=== PATIENT | male | born 2005 | race Caucasian/White ===

== ENCOUNTER → 2025-01-03 07:56 | Outpatient (BNVA) | payer BC, SELFPAY | PROVIDERS: Family Provider Nurse Practitioner Family; PCP Family Medicine; Visit Provider Physician Assistant | DX: S62.91XA Unspecified fracture of right hand, initial encounter for closed fracture (principal); S62.306A Unspecified fracture of fifth metacarpal bone, right hand, initial encounter for closed fracture; W22.09XA Striking against other stationary object, initial encounter | CPT/HCPCS: 73130 ==

== ENCOUNTER 2025-01-05 08:57 | Day surgery (SDC) | payer BC, SELFPAY ==
[2025-01-05] VITALS (11 sets, daily range): BP systolic 131–152; BP diastolic 82–107; PULSE 73–101; RESP 10–21; TEMP 36.1–36.9; O2SAT 93–98; BMI 37.4
--- NOTE | 2025-01-05 09:30 | W.PM.OPSUD ---
Surgery/Procedure H&P Update DATE OF PROCEDURE: January 05, 2025 DATE H&P PERFORMED: 01/03/25 H&P UPDATE INFORMATION: I have reviewed H&P completed within last 30 days, I have examined patient prior to procedure and No changes to prior documentation PREOP DIAGNOSIS: Right fifth metacarpal neck fracture PRIMARY INDICATION FOR PROCEDURE: Right fifth metacarpal neck fracture angulated and malrotated PLANNED PROCEDURE: Operation Date: 01/05/25 10:40 Proposed Procedures p ORIF Right Fifth Metacarpal(Right) - Clemente Hernandez DO
[2025-01-05] MEDS: acetaminophen 1,000 MG/100 ML PIGGYBACK 400 MG IV (09:45)
--- NOTE | 2025-01-05 10:13 | P.ANESASSM_ITS ---
Pre-Anesthetic Assessment Height/Weight: Height 6 ft Weight 276 lb Temp Pulse Resp BP Pulse Ox O2 Del Method 97.3 F L 90 17 151/105 97 Room Air 01/05/25 09:32 01/05/25 09:32 01/05/25 09:32 01/05/25 09:32 01/05/25 09:32 01/05/25 09:32 Preop Diagnosis: Right fifth metacarpal neck fracture Operation Date: 01/05/25 10:40 Proposed Procedures p ORIF Right Fifth Metacarpal(Right) - Clemente Hernandez DO Was Beta Lawanda taken within 24 hours: N/A Was Clonidine taken within 24 hours: N/A Last intake: Intake Last Liquid Date 01/04/25 Last Liquid Time 12:00 Last Solid Date 01/04/25 Last Solid Time 12:00 Social No alcohol and No tobacco Exam alert, oriented x 3, clear to auscultation bilaterally and regular rate & rhythm Airway Submandibular: within normal limits Cervical ROM: within normal limits Mallampati: Class III Dentition: full Anesthetic Plan ASA status: 3 Anesthesia: General Other: History of PONV, patient states he can throw up on water NPO since yesterday Current smoker, nicotine and marijuana Known hypertension, does not take any blood pressure meds. Preop BP 151/105 METs greater than 4 Plan for GETA with TIVA Medications/Allergies Home Medications ?Medication ?Instructions ?Recorded ?Confirmed ?Last Taken ?Type albuterol sulfate 90 mcg/actuation 2 inh inhalation Q4 H PRN shortness 07/03/23 01/04/25 Unknown Rx aerosol inhaler of breath or wheezing #6.7 g [facility] Allergies Allergy/AdvReac Type Severity Reaction Status Date / Time Alpha-Gal Allergy Unknown Verified 01/05/25 09:31 (Tajknsgnp-Eyqht-2,3-Gala penicillin G Allergy skin Verified 01/04/25 13:51 crawling Current Medications Generic Name Dose Route Start Last Admin Trade Name Freq PRN Reason Stop Dose Admin Sodium Chloride 1,000 mls @ 30 mls/hr 01/05/25 09:15 01/05/25 09:45 Sodium Chloride 0.9% IV 01/06/25 09:14 30 mls/hr .Q24H JACOB Administration PFSH Anesthesia Medical History (Updated 01/03/25 @ 12:09 by SYLVIA Jordan) 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
--- NOTE | 2025-01-05 11:00 | XR_ITS ---
WS: [id number] Exam: XR hand RT min 3V* [id number] Date/Time of Exam: 01/05/2025 11:00 AM Reason For Exam: RT 5TH DIGIT FIXATION; OR PICS AP, oblique and lateral C arm images of the RIGHT hand are submitted. The images depict a long axial screw reducing a fracture of the distal fifth metacarpal. Alignment is anatomic for healing.
[2025-01-05] MEDS: BUPivacaine 0.5% INJ 30 mL XX (11:12)
[2025-01-05] MEDS: ROPivacaine 0.5% SDV 30 mL 150 MG INJECTION (11:13)
--- NOTE | 2025-01-05 11:15 | PM.OP ---
Operative Report Date of procedure: January 05, 2025 Surgeon: Clemente Hernandez DO Procedure: Preop Diagnosis ?Displaced right fifth?metacarpal?neck fracture? Post-op diagnosis: Same Post-op findings: See procedure note Procedure done: Right fifth?metacarpal?open reduction internal fixation with intramedullary headless compression screw Implants: Arthrex 2.5 mm fully threaded headless compression screw Specimens removed/disposition: None Estimated blood loss (mL): 1cc Tourniquet time 9 minutes IV fluids: See anesthesia record Complications: None Findings: See op note Brief History: pt was seen in the office and sustained a right fifth?metacarpal?fracture .? Patient has significant angulation deformity and malrotation. We had detailed discussion with patient in the office about these findings and recommendations of nonoperative versus operative intervention.? Given deformity/malrotation and young age recommend surgical intervention.? Through shared decision making patient and family elect to proceed. Detail the risk benefits complications alternatives to surgery.? Risks include but are not limited to make it better or make it worse malunion nonunion loss of function of the hand, injury to extensor tendon mechanism, injury to nerves or vessels, infection.? Understanding these risks he elects to proceed with surgical intervention.? Consent was obtained in preoperative holding area. Procedure: Patient seen the preoperative holding area.? Consent was finalized and reviewed with patient as well as family in preop holding area confirming correct patient correct site of surgery and correct surgery procedure.? Patient was then evaluated by the anesthesia department.? Taken to the OR suite and placed on the OR table with a hand table to the right upper extremity all bony prominences well-padded patient was secured to the bed.? Patient then underwent anesthesia per the anesthesia department.? Nonsterile tourniquet applied to the right upper extremity.? Right upper extremity was then prepped and draped in standard orthopedic fashion.? Final timeout performed. Patient received appropriate preoperative antibiotics. Esmarch tourniquet was used exsanguinate the right upper extremity tourniquet was insufflated to 250 mmHg. mini C-arm was brought in to evaluate the fracture confirming right fifth?metacarpal?neck angulated fracture and malrotated which was evident clinically. At this point in time I subsequently performed a standard reduction maneuver to correct the rotation and volar angulation. I was able to achieve satisfactory reduction and held this under fluoroscopic guidance. At this point time I proceeded with placement of a headless compression screw. This point I inserted my guidewire percutaneously from a headless compression screw at the dorsal third of the?metacarpal?head to be an appropriate line with the shaft.? Once this was advanced and confirmed appropriate starting position orthogonal views with mini C arm it was then advanced a reduction maneuver was made closed at the fracture site and the guidewire was then advanced past the fracture into the proximal fragment and then secured into the hamate across the fifth CMC joint.? Once we confirmed appropriate reduction as well as guidepin, small stab incision was made, being intramedullary we then used the cannulated drill for the 2.5 screw which was then advanced drilled just past the fracture site.? Next I selected a appropriate length screw 2.5 Arthrex headless compression fully threaded screw this was then held up to the?metacarpal?to determine that it would be appropriate length with mini C arm.? Once this was confirmed this was the appropriate length I then utilized hand screwdriver and advance this which had excellent fracture site compression as well as maintenance of reduction.? Once this was advanced to appropriate depth being subchondral.? The guidepin was then removed.? Final x-rays AP oblique and lateral confirmed stable reduction and fixation with headless compression screw.? I then took the hand through range of motion identify patient's tenodesis and finger cascade And good alignment with no evidence of malrotation.? Tourniquet was then deflated hemostasis adequate.? Wound bed was then thoroughly irrigated small stab incision skin was then closed with interrupted nylon suture for skin.? Steri-Strips applied.?Local injection of lidocaine and ropivacaine was then injected around the fracture site as well as incision.? Patient's fingers were warm and well-perfused after tourniquet was let down.? Dressing applied of 4 x 4's Curlex and a ulnar gutter splint with Franki wrap.? Patient was then awakened from anesthesia and taken to PACU in stable condition. Disposition: Patient be nonweightbearing right upper extremity maintain splint till follow-up.? We will have patient see OT hand therapy for early splint takedown dressing change in range of motion with a thermoplastic splint this coming week.? Patient seen appropriate discharge instruction as well as pain medication.? Follow-up in 2 weeks in my office.
--- NOTE | 2025-01-05 11:15 | W.PM.BPON ---
Date of Procedure: 01/05/2025 Surgeon: Clemente Hernandez DO Marine [employer]ometer Assembler(s): None Procedure(s) performed: Right fifth metacarpal open reduction internal fixation with cannulated headless compression screw Findings of the procedure(s): Patient underwent procedure as planned without issues or complications. Estimated blood loss: 1 mL Specimen(s) removed: None Post-operative diagnosis: Right fifth metacarpal neck fracture angulated and malrotated
--- NOTE | 2025-01-05 12:35 | ANE.PACU2 ---
Inpatient post-anesthesia follow up: Airway intact: Yes Vital signs: Temperature 97.0 F Pulse Rate 77 Respiratory Rate 18 Blood Pressure 151/88 Pulse Oximetry 97 Oxygen Delivery Me thod Room Air Oxygen Flow Rate Fraction of Inspir ed Oxygen Hydration adequate: Yes Nausea and vomiting: No Pain level: 1 Mental status: Baseline
== END 2025-01-05 12:35 | disposition home or self-care (01) ==
PROVIDERS: PCP Family Medicine; Visit Provider Student in an Organized Health Care Education/Training Program
PROC: (CPT 26615; principal; 2025-01-05 10:40)
DX: S62.336A Displaced fracture of neck of fifth metacarpal bone, right hand, initial encounter for closed fracture (principal); W22.01XA Walked into wall, initial encounter; F17.200 Nicotine dependence, unspecified, uncomplicated; F12.90 Cannabis use, unspecified, uncomplicated; I10 Essential (primary) hypertension; Z91.014 Allergy to mammalian meats
CPT/HCPCS: 26615; 73130; 76000; C1713; J0131; J1885; J2250; J2795; J3010; J3490; J7030; J9999

== ENCOUNTER 2025-01-10 10:22 | Outpatient (CLI) | payer BC, SELFPAY | END 2025-01-10 10:23 | disposition home or self-care (01) | LOC: SPT 10:22 | PROVIDERS: Visit Provider Student in an Organized Health Care Education/Training Program | DX: Z46.89 Encounter for fitting and adjustment of other specified devices (principal); S62.306D Unspecified fracture of fifth metacarpal bone, right hand, subsequent encounter for fracture with routine healing; X58.XXXD Exposure to other specified factors, subsequent encounter | CPT/HCPCS: 97760; L3984 ==

== ENCOUNTER 2025-01-17 13:58 | Outpatient (RCR) | payer BC, SELFPAY | END 2025-01-25 23:59 | disposition home or self-care (01) | LOC: SOT 13:58 | PROVIDERS: Visit Provider Student in an Organized Health Care Education/Training Program | DX: S62.306A Unspecified fracture of fifth metacarpal bone, right hand, initial encounter for closed fracture (principal); X58.XXXA Exposure to other specified factors, initial encounter | CPT/HCPCS: 97166 ==

== ENCOUNTER → 2025-01-23 14:19 | Outpatient (BNVA) | payer BC, SELFPAY | PROVIDERS: Visit Provider Physician Assistant | DX: Z98.890 Other specified postprocedural states (principal); S62.306D Unspecified fracture of fifth metacarpal bone, right hand, subsequent encounter for fracture with routine healing; X58.XXXD Exposure to other specified factors, subsequent encounter | CPT/HCPCS: 73130 ==

== ENCOUNTER 2025-01-26 05:00 | Outpatient (RCR) | payer BC, SELFPAY | END 2025-02-25 23:59 | disposition home or self-care (01) | LOC: SOT 05:00 | PROVIDERS: Visit Provider Student in an Organized Health Care Education/Training Program | DX: S62.306A Unspecified fracture of fifth metacarpal bone, right hand, initial encounter for closed fracture (principal); X58.XXXA Exposure to other specified factors, initial encounter | CPT/HCPCS: 97022; 97110 ==